=== PATIENT | female | born 2000 | race Caucasian/White ===

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

== ENCOUNTER 2021-07-14 03:57 | Emergency (ER) | payer BC, SELFPAY ==
[2021-07-14 04:00] VITALS: BP 143/93; PULSE 118; RESP 18; TEMP 36.7; O2SAT 98
[2021-07-14 04:13] VITALS: RESP 16
--- NOTE | 2021-07-14 04:35 | ED.GENADUL_ITS ---
Discharge Plan Disposition Patient Disposition: HOME Condition: Good Discharge Details Clinical Impression: Depression Primary Care Provider: Konrad Banuelos ED Provider: Konrad Parker Home Meds and New Rx's Prescriptions: Continued norgestimate-ethinyl estradiol [Sprintec (28)] 0.25-35 mg-mcg tablet 1 tab PO DAILY Qty: 84 RF: 5 melatonin 5 mg capsule 5 mg PO HS Qty: 30 RF: 3 escitalopram oxalate [Lexapro] 20 mg tablet 20 mg PO DAILY Qty: 30 RF: 2 Discharge Instructions Instructions: Depression (ED) Additional Instructions: Please follow-up closely with your mental health advocates. They will be contacting you again in the morning and setting up follow-up. If you notice any worsening of your symptoms, or any new symptoms such as vomiting, diarrhea, fever, chills, shortness of breath, chest pain, numbness, weakness, or fainting , please return immediately to the emergency department for reevaluation. Please follow up with your primary care provider as soon as possible for reassessment and reevaluation. As always, it was a pleasure participating in your medical care today. Referrals: Konrad Banuelos MD [Primary Care Provider] - Medical Decision Making 21-year-old presents today for evaluation for mental health. Patient states that she smoked marijuana this evening which is not uncommon for her. Over the last few hours she has felt occasional increase thoughts of self-harm. She would harm herself by cutting herself superficially. She has done this in the past. She feels that after taking the marijuana she felt that this gave her somewhat of an out of body experience which to a degree and hence the symptoms. She feels somewhat better now, but is also concerned with the significant amount of new stressors that has been occurring in life, as well as multiple social components that have been adding to these feelings in general. She states clearly at this time that she does not want to end her life she does not want to harm herself but these thoughts have been of concern to her. She denies any auditory or visual hallucinations. She denies any other complaints at this time. Physical exam is unremarkable. Urine drug screen is returned positive for THC only. Patient feels stable, does not feel out of body like she did before. She is requesting help and discussion of her symptoms with her mental health after. We will consult mental health for assessment. This time I do feel that patient is stable for discharge after safety plan. 5:30 AM Urine drug screen positive only for THC. Patient remained stable and feels much better. Heart rate has normalized. The patient has been seen by mental health advocate, they do feel that she is stable for discharge with close follow-up outpatient tomorrow morning. They will help facilitate this. Patient agrees with this plan, and has safety plan with both mental health, myself, and her friend at bedside. Discussed red flags which to return. I have extensively reviewed the treatment plan and discharge instructions with the patient. I have addressed all patient concerns at this time. The patient was made aware of what symptoms to monitor for that would warrant a return to the emergency department. Discussed the plan with the patient, they demonstrate verbal understanding and agreement with our assessment and plan at this time. The documentation in this chart was dictated using [employer] dictation software. Please excuse any dictation errors. HPI General Date/Time Provider Initiated Documentation: 07/14/21 04:00 . HPI Narrative: 21-year-old presents today for evaluation for mental health. Patient states that she smoked marijuana this evening which is not uncommon for her. Over the last few hours she has felt occasional increase thoughts of self-harm. She would harm herself by cutting herself superficially. She has done this in the past. She feels that after taking the marijuana she felt that this gave her somewhat of an out of body experience which to a degree and hence the symptoms. She feels somewhat better now, but is also concerned with the significant amount of new stressors that has been occurring in life, as well as multiple social components that have been adding to these feelings in general. She states clearly at this time that she does not want to end her life she does not want to harm herself but these thoughts have been of concern to her. She denies any auditory or visual hallucinations. She denies any other complaints at this time. Related Data Home Medications Medication Instructions Recorded Confirmed norgestimate 0.25 mg-ethinyl 1 tab PO DAILY #84 tab 12/11/20 07/14/21 estradiol 35 mcg tablet melatonin 5 mg capsule 5 mg PO HS #30 cap 05/16/21 07/14/21 escitalopram oxalate 20 mg tablet 20 mg PO DAILY #30 tab 07/11/21 07/14/21 Previous Rx's Medication Instructions Recorded norgestimate 0.25 mg-ethinyl 1 tab PO DAILY #84 tab 12/11/20 estradiol 35 mcg tablet melatonin 5 mg capsule 5 mg PO HS #30 cap 05/16/21 escitalopram oxalate 20 mg tablet 20 mg PO DAILY #30 tab 07/11/21 Allergies Allergy/AdvReac Type Severity Reaction Status Date / Time Lactose Intolerance AdvReac Nausea Uncoded 07/14/21 04:13 General Stated Complaint: GenMedical MELISSA: 3 Review of Systems All systems reviewed & are unremarkable except as noted in HPI and below PFSH Medical History 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) Depression Elevated lipids Fatigue History of chicken pox 2001 Insomnia Prolonged periods Shingles Surgical History Adenoidectomy Myringotomy w/ PE (pressure equalizing) tubes Family History Mother Healthy adult Asthma Father Healthy adult Other Diabetes PGF Essential hypertension grandparent Asthma 4 siblings have had asthma in past Brother Essential hypertension Heart disease congenital issues Stroke as baby, complications of heart issues Brother Asthma Social History Smoking/Tobacco Use Status: Never Second Hand Exposure: Yes (Outside only) Smoking risk assessment performed?: Yes Alcohol Intake: never Drug use: Rarely Substance use type: marijuana Adopted: No Foster care: No Household members: family Housing: house Number of Children: 0 Education Level: Blink Details: [facility] Pets and animals: Yes (chickens) Pets and animals: cat(s), dog(s) and farm animals Sexually active: Yes Do you think of yourself as: nonbinary Current gender identity: neither exclusively male nor female Other: Preferred pronouns they/them Seatbelt use: always Helmet use: Yes Helmet use: always Working smoke detector in home: Yes Fire extinguisher in home: Yes Carbon monox detector in home: Yes Firearms in home: Yes Firearms unloaded and locked: Yes Do you feel safe at home: Yes Do you feel safe in your relationship?: Yes Exam Narrative Exam Narrative: 1.Const: Well-nourished, Well-developed, appearing stated age 2.Eyes: PERRL, no conjunctival injection, and symmetrical lids. 3.ENT: Atraumatic external nose and ears. Moist MM. Neck: Symmetric, trachea midline, No thyromegaly. 4.CVS: +S1/S2, No murmurs or gallops. Peripheral pulses 2+ and equal in all extremities. Brisk capillary refill in all extremities. 5.RESP: Unlabored respiratory effort. Clear to auscultation bilaterally. No wheezes rales or rhonchi 6.GI: Soft, Nontender/Nondistended, No hepatosplenomegaly. No guarding or rebound. 7.MSK: Normocephalic/Atraumatic, Extremities w/o deformity or ttp No cyanosis or clubbing, Normal movement of all extremities 8.Skin: Warm, Dry. No rashes or lesions. Old superficial well-healed scars from previous self-harm. No evidence of current trauma today. 9.Neuro: loading shovel oiler II-XII grossly intact. Sensation grossly intact, no focal neurologic deficits. 10.Psych: (AAO) x3. Appropriate mood and affect Course Vital Signs Vital signs: Vital Signs Temperature 36.7 C 07/14/21 04:00 Pulse 118 H 07/14/21 04:00 Respiratory Rate 18 07/14/21 04:00 Blood Pressure 143/93 H 07/14/21 04:00 Pulse Oximetry 98 07/14/21 04:00 Temperature 36.7 C 07/14/21 04:00 Temperature Source Skin 07/14/21 04:00 Pulse 118 H 07/14/21 04:00 Respiratory Rate 16 07/14/21 04:13 Respiratory Effort Non-Labored 07/14/21 04:13 Respiratory Depth Normal 07/14/21 04:13 Blood Pressure 143/93 H 07/14/21 04:00 Pulse Oximetry 98 07/14/21 04:00 Pain Level 0 07/14/21 04:00 Lab/Test Results Lab/Test Results: POC- Test(urine) Negative
[2021-07-14 04:39] LABS: *AMPHETAMINES SCREEN URINE Negative (Negative); *BARBITURATES SCREEN URINE Negative (Negative); *BENZODIAZEPINES SCREEN URINE Negative (Negative); Cannabinoids THC Positive (Negative); Cocaine Screen,Urine Negative (Negative); METHADONE URINE SCREEN Negative (Negative); OPIATES URINE SCREEN Negative (Negative)
[2021-07-14 04:42] LABS: Tricyclic Antidepressants Negative (Negative)
[2021-07-14 05:21] VITALS: BP 138/71; PULSE 95; RESP 18; O2SAT 97
== END 2021-07-14 05:30 | disposition home or self-care (01) ==
PROVIDERS: Emergency Provider Student in an Organized Health Care Education/Training Program; PCP Pediatrics
DX: F32.9 Major depressive disorder, single episode, unspecified (principal); F12.90 Cannabis use, unspecified, uncomplicated
CPT/HCPCS: 80307; 81025; 99283; 99282

== ENCOUNTER 2023-05-06 11:24 | Outpatient (REF) | payer OTHER, SELFPAY | END 2023-05-06 11:25 | disposition home or self-care (01) | LOC: LBN 11:24 | PROVIDERS: PCP Family Medicine; Visit Provider Obstetrics & Gynecology | DX: R30.0 Dysuria (principal) | CPT/HCPCS: 87086 ==